=== PATIENT | female | born 1945 | race Caucasian/White ===

== ENCOUNTER 2018-02-01 08:26 | Inpatient (IN) | payer OTHER ==
[2018-01-05 13:17] VITALS: BMI 38.0
--- NOTE | 2018-01-05 14:08 | PAT Medication Instructions ---
Service Date Jan 05, 2018. Current Home Medication List Alendronate/Cholecalciferol (Fosamax+D 70MG/2800 Iu), 1 TABLET PO WK Alprazolam (Alprazolam), 1 TAB PO HS PRN for Insomnia B-Complex W/Biotin & Folic Aci (Super B-Complex), 1 CAP PO QAM Biotin (Biotin 5000), 1 CAP PO QPM Black Pepper-Turmeric (Turmeric Curcumin 3-500 mg), 1 CAP PO QAM Calcium Citrate-Vitamin D (Citracal + D3 Maximum), 1 TAB PO QAM Cholecalciferol (Vitamin D3), 1 TAB PO QPM Chromium Picolinate (Chromium Picolinate), 1 CAP PO NOON Cinnamon (Cinnamon Extract), 1,000 MG PO NOON Citalopram Hydrobromide (Citalopram Hydrobromide), 1 TAB PO QAM Coenzyme Q10 (Ubidecarenone) (Co Q10), 1 TAB PO HS Cyclosporine (Ophth) (Restasis), 1 DROP OPB BID Diclofenac (Voltaren), 50 MG PO HS Evening Arroyo Oil (Evening Arroyo Oil), 1 CAP PO QPM Famotidine (Pepcid), 40 MG PO HS Flaxseed (Linseed) (Flaxseed Oil), 1 CAP PO QPM Pohslk-Stmphwx-Clnljqjavct (Garlic & Parsley), 1 CAP PO NOON Lisinopril (Zestril), 10 MG PO QAM Lutein (Cvs Lutein), 1 CAP PO BID Lysine (l-Lysine), 1 TAB PO QPM Magnesium Hydroxide (Milk of Magnesia), 1 DOSE PO DAILY PRN for PRN Magnesium Oxide (Mag-Ox), 400 MG PO NOON Metoprolol Tartrate (Lopressor) (Lopressor), 25 MG PO BID Misc Natural Products (Cosamin Asu Advanced Life), 1 CAP PO QPM Multiple Vitamins W/ Minerals (Centrum Adults), 1 TAB PO QPM Psyllium Husk (Bulk) (Psyllium Husk), 1 DOSE PO QPM [Magnesium Lotion], 1 DOSE TOP BID [Progestrone Cream], 1 DOSE PV UD [Synodrin Gel], 1 DOSE TOP QPM Medication Instructions For Your Scheduled Surgery - Check with surgeon for instructions: Diclofenac (Voltaren), 50 MG PO HS - Hold the following medications 2 weeks prior to surgery: Misc Natural Products (Cosamin Asu Advanced Life), 1 CAP PO QPM Lutein (Cvs Lutein), 1 CAP PO BID Flaxseed (Linseed) (Flaxseed Oil), 1 CAP PO QPM Qgevpf-Yrsrowp-Dcmpuaytpzw (Garlic & Parsley), 1 CAP PO NOON Coenzyme Q10 (Ubidecarenone) (Co Q10), 1 TAB PO HS Biotin (Biotin 5000), 1 CAP PO QPM Black Pepper-Turmeric (Turmeric Curcumin 3-500 mg), 1 CAP PO QAM Evening Arroyo Oil (Evening Arroyo Oil), 1 CAP PO QPM Chromium Picolinate (Chromium Picolinate), 1 CAP PO NOON Cinnamon (Cinnamon Extract), 1,000 MG PO NOON - Hold the following medications 24 hours prior to surgery: [Synodrin Gel], 1 DOSE TOP QPM [Progestrone Cream], 1 DOSE PV UD - Hold the following medications the morning of surgery: Alendronate/Cholecalciferol (Fosamax+D 70MG/2800 Iu), 1 TABLET PO WK B-Complex W/Biotin & Folic Aci (Super B-Complex), 1 CAP PO QAM Calcium Citrate-Vitamin D (Citracal + D3 Maximum), 1 TAB PO QAM Lisinopril (Zestril), 10 MG PO QAM Magnesium Hydroxide (Milk of Magnesia), 1 DOSE PO DAILY PRN for PRN Magnesium Oxide (Mag-Ox), 400 MG PO NOON [Magnesium Lotion], 1 DOSE TOP BID - Take the following medications the morning of surgery with a sip of water: Metoprolol Tartrate (Lopressor) (Lopressor), 25 MG PO BID Cyclosporine (Ophth) (Restasis), 1 DROP OPB BID Citalopram Hydrobromide (Citalopram Hydrobromide), 1 TAB PO QAM Alprazolam (Alprazolam), 1 TAB PO PRN for Insomnia (if needed) - Take the following medications as scheduled the night before surgery: [Magnesium Lotion], 1 DOSE TOP BID Psyllium Husk (Bulk) (Psyllium Husk), 1 DOSE PO QPM Multiple Vitamins W/ Minerals (Centrum Adults), 1 TAB PO QPM Metoprolol Tartrate (Lopressor) (Lopressor), 25 MG PO BID Magnesium Hydroxide (Milk of Magnesia), 1 DOSE PO DAILY PRN for PRN (if needed) Lysine (l-Lysine), 1 TAB PO QPM Famotidine (Pepcid), 40 MG PO HS Cyclosporine (Ophth) (Restasis), 1 DROP OPB BID Cholecalciferol (Vitamin D3), 1 TAB PO QPM Alprazolam (Alprazolam), 1 TAB PO HS PRN for Insomnia (if needed) If you have any questions please call us at [phone] or [phone] or [phone]
--- NOTE | 2018-01-05 14:44 | DIAGNOSTIC IMAGING REPORT ---
CHEST 2 VIEWS ROUTINE CLINICAL HISTORY: Preoperative chest COMPARISON STUDY: No previous studies for comparison. FINDINGS: The cardiac and mediastinal contours are normal. There is no evidence of focal pulmonary consolidation. There is no evidence of failure. No pleural effusions are visualized.[ IMPRESSION: No active disease in the chest. Electronically signed by: Akil Cage M.D. 01/05/2018 2:43 PM Dictated Date/Time: 01/05/2018 2:42 PM
[2018-01-05 14:45] LABS: BASO % 0.7 %; BASO ABS # 0.04 K/uL (0-0.2); EOS % 2.4 %; EOS ABS # 0.13 K/uL (0-0.5); HEMATOCRIT 42.6 % (37-47); HEMOGLOBIN 14.7 g/dL (12.0-16.0); IG# 0.01 K/uL (0.00-0.02); LYMPH % 30.4 %; LYMPH ABS # 1.67 K/uL (1.2-3.4); MEAN CELL VOLUME 92.6 fL (80-100); MEAN CORPUSCULAR HGB CONC 34.5 g/dl (32-36); MEAN PLATELET VOLUME 11.8 fL (7.4-10.4); MONO % 6.7 %; MONO ABS # 0.37 K/uL (0.11-0.59); NEUT % 59.6 %; NEUT ABS # 3.27 K/uL (1.4-6.5); PLATELET COUNT 215 K/uL (130-400); RED CELL DISTRIBUTION WIDTH CV 13.5 % (11.5-14.5); RED CELL DISTRIBUTION WIDTH SD 45.6 fL (36.4-46.3); WHITE BLOOD COUNT 5.49 K/uL (4.8-10.8)
[2018-01-05 14:54] LABS: PTT PATIENT 26.5 SECONDS (21.0-31.0)
[2018-01-05 16:25] LABS: ALBUMIN 3.9 gm/dl (3.4-5.0); CALCIUM 9.1 mg/dl (8.5-10.1); CREATININE 0.72 mg/dl (0.60-1.20); POTASSIUM 3.6 mmol/L (3.5-5.1)
[2018-01-06 06:44] LABS: HEMOGLOBIN A1C 5.4 % (4.5-5.6)
--- NOTE | 2018-01-12 10:58 | HISTORY & PHYSICAL EXAMINATION ---
DATE OF ADMISSION: 02/01/2018 CHIEF COMPLAINT: Right knee pain. HISTORY OF PRESENT ILLNESS: Ms. Rodriguez is a 73-year-old female with a 3-4 year history of right knee pain. The patient rates her pain at 7/10. She has pain with her daily activities. She has limited standing and walking tolerance. Pain is worse with weightbearing. The patient has had Voltaren injections and bracing over the years without relief. She has failed conservative treatment and is scheduled for right knee replacement. PAST MEDICAL HISTORY: Hypertension, PVCs, heart murmur with a history of rheumatic fever and anxiety. She denies heart disease, diabetes or DVT. PAST SURGICAL HISTORY: Cholecystectomy and excision of subcutaneous cyst. SOCIAL HISTORY: The patient denies alcohol or tobacco use. She lives in a 2-story home. She is and works as a manufacturing quality engineer. FAMILY HISTORY: Positive for PE in her mother. MEDICATIONS: Citracal 1260 mg daily, Super B complex, vitamin C, Centrum Silver, L-lysine, cinnamon 1000 mg, flaxseed oil, Lutein, magnesium 400 mg, chromium 200 mcg, CoQ10 at 200 mg, biotin 5000 mcg, vitamin D3 at 2000 international units, milk of magnesia, progesterone cream, metoprolol 25 mg b.i.d., lisinopril 10 mg, famotidine 40 mg, Xanax 1 mg, Fosamax 70 mg, Restasis twice a day, citalopram 10 mg and diclofenac 50 mg. ALLERGIES: ADHESIVE, CAFFEINE AND ASPIRIN. REVIEW OF SYSTEMS: See HPI. Ten other systems reviewed, all negative. PHYSICAL EXAMINATION: VITAL SIGNS: Height 5 feet 8, weight 254 pounds. BMI is 38. GENERAL: Well-developed and well-nourished female who is alert and oriented x3. Mood and affect are appropriate. HEENT: Normocephalic and atraumatic. Mucous membranes are moist and intact. NECK: Supple without lymphadenopathy. HEART: Regular rate and rhythm without murmurs, rubs or gallops. LUNGS: Clear to auscultation without wheezes or rhonchi. ABDOMEN: Soft and nontender. Bowel sounds are equal and active. EXTREMITIES: No ecchymosis, redness or warmth. She has valgus deformity. Range of motion is from 5-95 degrees. She has +1 medial laxity. She is neurovascularly intact with +5/5 strength. She has mild effusion. X-RAY EXAMINATION: AP and lateral views show joint space narrowing and osteophyte formation. IMPRESSION: Degenerative joint disease, right knee. PLAN: The patient will be admitted for a right total knee arthroplasty. The patient has an ASPIRIN ALLERGY. She is requesting Eliquis for DVT prophylaxis as it is on her formulary.
[2018-02-01] VITALS (10 sets, daily range): BP systolic 105–165; BP diastolic 57–83; PULSE 61–82; TEMP 36.6; O2SAT 91–97; Ht 175.3 cm; Wt 115.5 kg
[~2018-02-01] VITALS: Ht 175.3 cm; Wt 115.5 kg
[2018-02-01] MEDS: TRANEXAMIC ACID INJ 1,000 MG x 2 Bags IV SCH ×4 (06:30→09:54)
[~2018-02-01 08:26] MED LIST: ACETAMINOPHEN 500 MG TAB PO SCH; ALPR-411 PO; ATROPINE SULFATE 0.1 MG/ML 5ML SYR IV PRN; B-CO1CAP5 PO; BIOTCAP2 PO; BLAC1CAP5 PO; BUPIVACAINE 0.25% 30 ML VIAL ONE; BUPIVACAINE 0.5 % 5 MG/1 ML PF 10ML VIAL ONE; CALC1TAB9 PO; CEFAZOLIN 2000MG IV PUSH 15 ML IV SCH; CHOL20007 PO; CHRO1CAP3 PO; CINN500C13 PO; CITA10TA4 PO; COEN90TA PO; CYCL0.052 OPB; CeleBREX 200 MG CAP PO SCH; DEXAMETHASONE 4 MG TAB PO SCH; DICL50TA3 PO; EVENCAP6 PO; EpHEDrine SULFATE INJ 50 MG/ML AMP IV PRN; FAMO40TA6 PO; FAMOTIDINE 20 MG TAB PO SCH; FLAX12003 PO; FSMD/70 PO; GABAPENTIN 300 MG CAP PO SCH; GARL1CAP3 PO; LACTATED RINGER'S 1000ML 1,000 ML IV SCH; LACTATED RINGER'S 1000ML 500 ML IV SCH; LACTATED RINGER'S 1000ML IV SCH; LISI-461 PO; LUTE6CAP9 PO; LYSI1TAB11 PO; MAGN400T6 PO; MAGNESIUM TOP; METO25TA56 PO; METOCLOPRAMIDE HCL 10 MG TAB PO SCH; MISC1CAP PO; MOMLX PO; MULT-610 PO; ONDANSETRON INJ 2 MG/ML 2 ML VIAL IV PRN; PROGESTRONE PV; PSYLPOW38 PO; ROPIVACAINE 5MG/ML 30 ML 150 MG, BUPIVACAINE 0.5% MPF INJ 30 ML, EpINEphrine HCL INJ 0.... INFIL SCH; [UNRECOGNIZED DRUG - OTHER] TOP
[2018-02-01] MEDS ORDERED: MIDAZOLAM HCL 1 MG/ML 2ML VIAL ONE ×5 (08:51→10:44)
--- NOTE | 2018-02-01 09:04 | History & Physical Bridge Note ---
H&P Re-Evaluation Bridge Note: I have examined the patient, reviewed the History & Physical and in the interval since the performance of the History & Physical I have noted the following changes of clinical significance: No changes noted
[2018-02-01] MEDS ORDERED: ORTHO JOINT ANESTHETIC ONE (09:30)
[2018-02-01] MEDS ORDERED: BACITRACIN 50000 UNIT VIAL ONE (09:31)
[2018-02-01] MEDS ORDERED: POVIDONE-IODINE OP SOLN 30 ML BTL ONE (09:31)
[2018-02-01] MEDS ORDERED: FENTANYL CITRATE INJ 50 MCG/1 ML 2 ML VIAL ONE (09:47)
[2018-02-01] MEDS ORDERED: PROPOFOL IV EMULSION 10 MG/ML 20 ML VIAL IV ONE (11:02)
[2018-02-01] MEDS ORDERED: EpHEDrine SULFATE 50MG/5ML SYR ONE (11:02)
[2018-02-01] MEDS ORDERED: LIDOCAINE HCL 2% 2 ML VIAL (20MG/ML) ONE (11:02)
--- NOTE | 2018-02-01 11:02 | [facility] Post Operative Brief Note ---
Immediate Operative Summary Operative Date Feb 01, 2018. Pre-Operative Diagnosis Right knee degenerative joint disease Post-Operative Diagnosis Right knee degenerative joint disease Procedure(s) Performed Right total knee arthroplasty, cemented Surgeon Dr. Hale Fabricator Artificial Breast Surgeon(s) Wily Garcia PA-C Estimated Blood Loss 10cc Findings Consistent with Post-Op Diagnosis Specimens A: Right knee bone and tissue Anesthesia Type MAC Spinal Regional Complication(s) none Disposition Accompanied Pt To Recover: no Disposition: Recovery Room / PACU
[2018-02-01] MEDS ORDERED: MAGNESIUM HYDROXIDE SUSP 30 ML UDC PO PRN (11:45)
[2018-02-01] MEDS ORDERED: MoRPHine SULFATE 2 MG/ML CARP IV PRN (11:45)
[2018-02-01] MEDS ORDERED: ONDANSETRON INJ 2 MG/ML 2 ML VIAL IV PRN (11:45)
[2018-02-01] MEDS ORDERED: ALPRAZOLAM 0.5 MG TAB PO PRN (11:45)
[2018-02-01] MEDS ORDERED: ZOLPIDEM TARTRATE 5 MG TAB PO PRN (11:45)
[2018-02-01] MEDS ORDERED: ALUMINUM/MAGNESIUM/SIMETH (MAALOX MAX) 30 ML UDC PO PRN (11:45)
[2018-02-01] MEDS ORDERED: METOCLOPRAMIDE HCL INJ 5 MG/ML 2 ML VIAL IV PRN (11:45)
[2018-02-01] MEDS: FERROUS GLUCONATE 324 MG TAB PO SCH ×2 (12:00→17:52)
--- NOTE | 2018-02-01 12:17 | DIAGNOSTIC IMAGING REPORT ---
RIGHT KNEE 2 VIEWS History: Right total knee arthroplasty. Degenerative arthritis. Postop. FINDINGS: The patient is status post a right total knee arthroplasty. The hardware is intact. No fracture or dislocation. Skin juan f and surgical drains are in place. IMPRESSION: Right total knee arthroplasty. No evidence for hardware complication. Electronically signed by: Miles Mike M.D. 02/01/2018 12:16 PM Dictated Date/Time: 02/01/2018 12:16 PM
--- NOTE | 2018-02-01 12:26 | OPERATIVE REPORT ---
DATE OF OPERATION: 02/01/2018 PREOPERATIVE DIAGNOSIS: Osteoarthritis, right knee. POSTOPERATIVE DIAGNOSIS: Osteoarthritis, right knee. PROCEDURE: Right total knee arthroplasty. SURGEON: Dr. Hale. DEICER INSPECTOR ELECTRIC: Wily Garcia PA-C ANESTHESIA: Spinal. COMPLICATIONS: None. OPERATION AND FINDINGS: Following induction of spinal anesthesia, the patient's right leg was prepped and draped in the usual sterile manner. Limb was exsanguinated with an Esmarch bandage and tourniquet was inflated to 350 mmHg. A longitudinal incision was made anteriorly. Subcutaneous tissue was sharply dissected. Electrocautery was used for hemostasis. Prepatellar bursa was incised and median parapatellar incision was performed. Patella was everted and the knee was flexed. Fat pad was removed to aid in visualization and the anterior and posterior cruciate ligaments were removed. The medial face of the tibia was cleared of soft tissue first with a Bovie and a Pa elevator. This tissue was retracted posteriorly using a blunt Hohmann. A Almendarez retractor was used to expose the synovium above on the anterior aspect of the femur and this was removed down to bone. The PSI guide was placed on the distal femur and two pins were placed anteriorly and kept in position and two additional pins were placed distally and removed. The distal femoral cutting block was placed in position and the distal femoral cut was used in the +0 setting. Next, the cutting block was removed and the femoral 4 block was placed in the distal end of the femur. Care was taken to ensure appropriate external rotation and feeler gauge was used to ensure no notching would occur. The femoral block was centered on the distal femur and in the medial and lateral direction and was fixed using two bone screws. The gold pins were then removed. The oscillating saw was used to create the bone cuts and the distal femoral cutting block was removed and the reciprocating saw was used to further trim the femoral cuts as well as a deep in the area for the trochlear groove. Next, posterior condyle remnants were removed. Following this, a meniscal clamp and knife were utilized to remove the anterior portion of both medial and lateral meniscus. The proximal tibia PSI guide was placed into position and the proximal tibial cutting guide was screwed into position. The extra medullary alignment guide was utilized to ensure appropriate alignment. The proximal tibia was cut and the proximal tibial cutting block was removed and this bone fragment was removed. The appropriate guide was used to perform the notch cut on the distal femur and a lamina land leasing examiner and a cochlear knife were utilized to finish both medial and lateral meniscectomies to remove any remnants of the posterior or anterior cruciate ligaments. Following this, the distal femoral component was impacted into position and blunt Carlos was used to sublux the tibia anteriorly. The proximal tibia was sized and a 3 tibial tray was chosen as the size to be used. This was put into position and appropriate external rotation and a double check with extramedullary alignment guide was performed. The canal for the tibial stem was prepared first with a 17 mm drill and then the punch and a mallet and the trial tibial poly was placed. An 11 was chosen the size to be used. It was brought to extension and the patella was prepared with the patellar reamer. A 33 component was chosen the size to be used. The trial component was placed and knee was taken through a full range of motion and there was found to be no lateral subluxation of the tibia. No lateral release was required. The trials were all removed. The final components were obtained and assembled. Cement was mixed. The knee was thoroughly irrigated and the ortho mix was injected about the knee joint. The final components were cemented into position. After thoroughly suctioning and drying the bone ends, all excess cement was removed. The knee was held in extension while the cement hardened. The wound was irrigated and closed over a Hemovac drain. #1 Vicryl was used to close the extensor mechanism. Subcutaneous tissues closed using 0 Dexon. Skin was closed with juan f. Sterile dressing of Adaptic, 4 x 4's, sterile Webril, and Ryan was applied. The patient tolerated the procedure well. Due to the complex nature of the procedure, the entire surgery was performed with the operational assistance of Wily Garcia PA-C. The boiler assistant operator, under direct supervision, was involved in the actual performance of all aspects of the surgical procedure including hemostasis, tissue retraction and incision, instrument management, patient positioning, and wound closure. DISPOSITION: Recovery room, stable. I attest to the content of the Intraoperative Record and any orders documented therein. Any exception s are noted below.
--- NOTE | 2018-02-01 12:54 | Anesthesiology Progress Note ---
Anesthesia Post Op Note Date & Time Feb 01, 2018 at 12:53 Vital Signs Pain Intensity: 0 Vital Signs Past 12 Hours Date Time Temp Pulse Resp B/P (MAP) Pulse Ox O2 Delivery O2 Flow Rate FiO2 02/01/18 12:42 62 12 02/01/18 12:42 62 12 97 02/01/18 12:41 127/60 02/01/18 12:37 77 19 97 02/01/18 12:37 79 19 02/01/18 12:36 129/59 02/01/18 12:35 36.3 69 16 127/60 94 Nasal Cannula 3 02/01/18 12:32 62 17 93 02/01/18 12:32 62 17 02/01/18 12:31 123/61 02/01/18 12:27 70 18 95 02/01/18 12:27 70 18 02/01/18 12:26 133/59 02/01/18 12:22 60 16 98 02/01/18 12:22 61 16 02/01/18 12:21 122/61 02/01/18 12:17 65 24 97 02/01/18 12:17 66 24 02/01/18 12:15 121/61 02/01/18 12:12 64 20 02/01/18 12:12 64 20 95 02/01/18 12:11 113/71 02/01/18 12:07 61 13 02/01/18 12:07 61 13 94 02/01/18 12:06 125/59 02/01/18 12:05 66 20 97 02/01/18 12:05 66 20 02/01/18 12:01 125/60 02/01/18 12:00 63 20 94 02/01/18 12:00 63 20 02/01/18 11:56 136/70 02/01/18 11:55 65 12 97 02/01/18 11:55 67 12 02/01/18 11:54 66 16 02/01/18 11:54 66 16 98 02/01/18 11:51 118/74 02/01/18 11:49 67 18 02/01/18 11:49 68 18 96 02/01/18 11:46 128/62 02/01/18 11:44 73 18 97 02/01/18 11:44 66 18 02/01/18 11:40 125/66 02/01/18 11:40 128/62 02/01/18 11:39 69 94 02/01/18 11:39 36.3 69 16 125/66 97 Nasal Cannula 3 02/01/18 11:39 69 02/01/18 09:10 36.6 61 20 165/79 96 Room Air Notes Mental Status: alert / awake / arousable, participated in evaluation Pt Amnestic to Procedure: Yes Nausea / Vomiting: adequately controlled Pain: adequately controlled Airway Patency, RR, SpO2: stable & adequate BP & HR: stable & adequate Hydration State: stable & adequate Neuraxial Anesthesia: was administered, sensory block is resolving Anesthetic Complications: no major complications apparent
[2018-02-01] MEDS ORDERED: MoRPHine SULFATE 4 MG/ML 1 ML CARP\\VIAL IV PRN (13:30)
[2018-02-01] MEDS: D5W AND 1/2NSS + 20MEQ KCL 1,000 ML IV SCH ×2 (13:35→22:13)
[2018-02-01] MEDS: KETOROLAC TROMETHAMINE 15 MG/ML VIAL IV. SCH ×2 (13:41→19:49)
[2018-02-01] MEDS: ACETAMINOPHEN 500 MG TAB PO SCH (17:52)
[2018-02-01] MEDS: CEFAZOLIN IV 2,000 MG in SYRINGE 0 ML IV SCH (17:52)
[2018-02-01] MEDS: OXYCODONE HCL IR 5 MG TAB (IMMEDIATE RELEASE) PO PRN ×2 (18:35→19:49)
[2018-02-01] MEDS: METOPROLOL TARTRATE 25 MG TAB PO SCH (20:47)
[2018-02-01] MEDS: CHOLECALCIFEROL 1000 INTER.UNIT TAB PO SCH (20:48)
[2018-02-01] MEDS: DOCUSATE SODIUM 100 MG CAP PO SCH (20:48)
[2018-02-02] VITALS (8 sets, daily range): BP systolic 112–150; BP diastolic 62–82; PULSE 63–70; TEMP 36.3–37; O2SAT 92–97
[2018-02-02] MEDS: CEFAZOLIN IV 2,000 MG in SYRINGE 0 ML IV SCH (02:25)
[2018-02-02] MEDS: ACETAMINOPHEN 500 MG TAB PO SCH ×3 (02:25→18:14)
[2018-02-02] MEDS: KETOROLAC TROMETHAMINE 15 MG/ML VIAL IV. SCH ×2 (02:25→09:07)
[2018-02-02 07:07] LABS: HEMATOCRIT 33.7 % (37-47); HEMOGLOBIN 11.4 g/dL (12.0-16.0); MEAN CELL VOLUME 92.3 fL (80-100); MEAN CORPUSCULAR HEMOGLOBIN 31.2 pg (25-34); MEAN CORPUSCULAR HGB CONC 33.8 g/dl (32-36); MEAN PLATELET VOLUME 10.7 fL (7.4-10.4); PLATELET COUNT 181 K/uL (130-400); RED CELL DISTRIBUTION WIDTH CV 13.3 % (11.5-14.5); WHITE BLOOD COUNT 12.65 K/uL (4.8-10.8)
[2018-02-02] MEDS ORDERED: DEXAMETHASONE INJ 10 MG in SYRINGE 0 ML IV ONE (07:30)
[2018-02-02 07:45] LABS: CALCIUM 8.3 mg/dl (8.5-10.1); CREATININE 0.69 mg/dl (0.60-1.20); POTASSIUM 3.9 mmol/L (3.5-5.1)
[2018-02-02] MEDS ORDERED: B COMPLEX PO SCH (09:00)
[2018-02-02] MEDS ORDERED: BIOTIN PO SCH (09:00)
[2018-02-02] MEDS ORDERED: CITALOPRAM 20 MG TAB PO SCH (09:00)
[2018-02-02] MEDS ORDERED: FOLIC ACI PO SCH (09:00)
[2018-02-02] MEDS: OXYCODONE HCL IR 5 MG TAB (IMMEDIATE RELEASE) PO PRN ×2 (09:07→20:25)
[2018-02-02] MEDS: METOPROLOL TARTRATE 25 MG TAB PO SCH ×2 (09:08→20:46)
[2018-02-02] MEDS: MAGNESIUM OXIDE 400 MG TAB PO SCH (09:09)
[2018-02-02] MEDS: CITALOPRAM 20 MG TAB PO SCH (09:09)
[2018-02-02] MEDS: FERROUS GLUCONATE 324 MG TAB PO SCH ×3 (09:10→18:14)
[2018-02-02] MEDS: MULTIVITAMIN TAB PO SCH (09:10)
[2018-02-02] MEDS: D5W AND 1/2NSS + 20MEQ KCL 1,000 ML IV SCH (09:11)
[2018-02-02] MEDS: LISINOPRIL 10 MG TAB PO SCH (09:11)
[2018-02-02] MEDS: DOCUSATE SODIUM 100 MG CAP PO SCH ×2 (09:11→20:46)
[2018-02-02] MEDS: PANTOprazole SOD 40 MG TAB PO SCH (09:11)
--- NOTE | 2018-02-02 09:12 | Orthopedic Progress Note ---
Orthopedic Progress Note Date of Service Feb 02, 2018. Subjective Post OP Day: 1 Reports: feeling well Objective N/V intact, dressing C/D/I (Hemovac d/c'd), toes mobile Date Time Temp Pulse Resp B/P (MAP) Pulse Ox O2 Delivery O2 Flow Rate FiO2 02/02/18 08:23 95 Room Air 02/02/18 08:05 36.7 68 15 130/75 (93) 95 Room Air 02/02/18 02:53 36.3 63 15 128/63 (84) 97 Room Air 02/02/18 00:35 Room Air 02/01/18 22:50 36.6 61 16 105/57 (73) 95 Room Air 02/01/18 20:44 71 129/66 (87) 02/01/18 18:32 36.6 69 16 142/78 (99) 91 Room Air 02/01/18 16:07 36.6 76 16 143/76 (98) 94 Room Air 02/01/18 16:00 94 Room Air 02/01/18 15:04 74 16 123/73 (90) 97 2.0 02/01/18 13:56 82 16 151/83 (105) 93 2.0 02/01/18 13:30 73 16 121/76 (91) 95 Nasal Cannula 2.0 02/01/18 13:00 36.6 69 20 123/65 (84) 96 Nasal Cannula 2.0 02/01/18 13:00 96 Nasal Cannula 2.0 02/01/18 13:00 96 Nasal Cannula 2.0 02/01/18 12:53 70 14 02/01/18 12:53 71 14 97 02/01/18 12:51 116/63 02/01/18 12:48 68 15 93 02/01/18 12:48 67 15 02/01/18 12:45 121/60 02/01/18 12:43 63 14 02/01/18 12:43 63 14 94 02/01/18 12:42 62 12 02/01/18 12:42 62 12 97 02/01/18 12:41 127/60 02/01/18 12:37 77 19 97 02/01/18 12:37 79 19 02/01/18 12:36 129/59 02/01/18 12:35 36.3 69 16 127/60 94 Nasal Cannula 3 02/01/18 12:32 62 17 93 02/01/18 12:32 62 17 02/01/18 12:31 123/61 02/01/18 12:27 70 18 95 02/01/18 12:27 70 18 02/01/18 12:26 133/59 02/01/18 12:22 60 16 98 02/01/18 12:22 61 16 02/01/18 12:21 122/61 02/01/18 12:17 65 24 97 02/01/18 12:17 66 24 02/01/18 12:15 121/61 02/01/18 12:12 64 20 02/01/18 12:12 64 20 95 02/01/18 12:11 113/71 02/01/18 12:07 61 13 02/01/18 12:07 61 13 94 02/01/18 12:06 125/59 02/01/18 12:05 66 20 97 02/01/18 12:05 66 20 02/01/18 12:01 125/60 02/01/18 12:00 63 20 94 02/01/18 12:00 63 20 02/01/18 11:56 136/70 02/01/18 11:55 65 12 97 02/01/18 11:55 67 12 02/01/18 11:54 66 16 02/01/18 11:54 66 16 98 02/01/18 11:51 118/74 02/01/18 11:49 67 18 02/01/18 11:49 68 18 96 02/01/18 11:46 128/62 02/01/18 11:44 73 18 97 02/01/18 11:44 66 18 02/01/18 11:40 125/66 02/01/18 11:40 128/62 02/01/18 11:39 69 94 02/01/18 11:39 36.3 69 16 125/66 97 Nasal Cannula 3 02/01/18 11:39 69 Laboratory Results 24 Hours: Test 02/02/18 06:40 Hematocrit 33.7 % Hemoglobin 11.4 g/dL Assessment & Plan Assessment: 73 yo female stable POD #1 s/p right TKA Plan: 1. Med management 2. DVT prophylaxis- Eliquis, SCDs 3. PT/OT 4. D/C planning- home w/ HH
--- NOTE | 2018-02-02 09:13 | Discharge Instructions ---
Discharge Instructions Date of Service Feb 02, 2018. Admission Reason for Admission: Right Knee Osteoarthritis Discharge Discharge Diagnosis / Problem: Right knee arthritis Discharge Goals Goal(s): Decrease discomfort, Improve function Activity Recommendations Activity Limitations: as noted below Weightbearing Status: Right weightbearing (as tolerated) . Instructions / Follow-Up Instructions / Follow-Up ACTIVITY RECOMMENDATIONS: SELF CARE INSTRUCTIONS AFTER TOTAL KNEE REPLACEMENT A. You may need to continue a physical therapy program after discharge from the hospital. There are several options available to you. Your doctor will assist you in selecting the best one for you. 1. An out-patient facility 2 to 3 times a week for therapy or home therapy. 2. Continue working on all exercises taught to you in the hospital. Your goals should be to increase bending of your knee to 90 degrees and beyond and to fully straighten your knee. B. You may progress at your own pace from walking with a walker or crutches to a cane; then to no assistive devices. C. Make walking a part of your daily routine. Be up as much as comfortable with rest periods throughout the day. Rest with leg elevation is very important. Use the ice wrap frequently for the first 3-4 weeks. D. There are no restrictions on activities. You may ride in a car, shop, participate in log rider and all social activities. E. Wear the long elastic stockings (EMBER hose) 20 hours a day for 2 weeks after surgery. They can be removed several times a day for laundering and for a bath. F. You may shower, no tub baths until cleared by your doctor. SPECIAL CARE INSTRUCTIONS: VERY IMPORTANT TO READ AND REVIEW A. There are a few signs you need to watch for after you are home. Call [facility] if you notice any of the followin. Increased severe knee pain. Some pain is expected especially when you exercise. 2. Increased swelling in your leg or knee; pain or swelling of the calf muscle in either lower leg. 3. Any fluid drainage from the incision. 4. Shortness of breath or chest pain. B. Please call [facility] at if you have any concerns or questions about your operation or recovery. The doctor or his nurse will return your call promptly. C. You must take antibiotics before dental work, bladder, bowel or other surgery. Your doctor will provide you with a permanent care to carry describing this precaution. IMPORTANT: * REMEMBER TO TAKE ASPIRIN, 81 MG, TWICE DAILY FOR 4 WEEKS UNLESS OTHERWISE DIRECTED. THIS IS YOUR BLOOD THINNER. * HIGH RISK PATIENTS MAY BE PRESCRIBED A STRONGER BLOOD THINNER. THIS WILL BE PROVIDED AT DISCHARGE. * CALL IF INCREASED PAIN, REDNESS, DRAINAGE OR FEVER GREATER THAT 101. * WEAR EMBER HOSE 20 HOURS PER DAY FOR 2 WEEKS. FOLLOW UP VISIT: If appointment is not already scheduled: Please call [facility] to make a follow-up appointment for 2 weeks after your surgery at . Current Hospital Diet Patient's current hospital diet: Regular Diet Discharge Diet Recommended Diet: Regular Diet Procedures Procedures Performed: Right total knee arthroplasty, cemented Pending Studies Studies pending at discharge: no Laboratory Results Hemoglobin A1c Test 01/05/18 13:55 Range/Units Estimated Average Glucose 108 mg/dl Hemoglobin A1c 5.4 4.5-5.6 % Medical Emergencies . Who to Call and When: Medical Emergencies: If at any time you feel your situation is an emergency, please call 911 immediately. . Non-Emergent Contact Non-Emergency issues call your: Surgeon Call Non-Emergent contact if: temperature is above 101.5, your pain is not controlled, wound has increased drainage, wound has increased redness . "Provider Documentation" section prepared by Wily Garcia PA-C. . [place] Drug Monitoring Program Search Results: patient reviewed within database, no issues identified
--- NOTE | 2018-02-02 10:08 | Anesthesiology Progress Note ---
Anesthesia Post Op Note Date & Time Feb 02, 2018 at 10:07 Vital Signs Pain Intensity: 3.5 Vital Signs Past 12 Hours Date Time Temp Pulse Resp B/P (MAP) Pulse Ox O2 Delivery O2 Flow Rate FiO2 02/02/18 09:00 36.7 70 14 130/67 (88) 97 Room Air 02/02/18 08:23 95 Room Air 02/02/18 08:05 36.7 68 15 130/75 (93) 95 Room Air 02/02/18 02:53 36.3 63 15 128/63 (84) 97 Room Air 02/02/18 00:35 Room Air 02/01/18 22:50 36.6 61 16 105/57 (73) 95 Room Air Notes Mental Status: alert / awake / arousable, participated in evaluation Pt Amnestic to Procedure: Yes Nausea / Vomiting: adequately controlled Pain: adequately controlled Airway Patency, RR, SpO2: stable & adequate BP & HR: stable & adequate Hydration State: stable & adequate Neuraxial Anesthesia: was administered, sensory block resolved Anesthetic Complications: no major complications apparent
[2018-02-02] MEDS: APIXABAN 2.5 MG TAB PO SCH ×2 (12:21→20:46)
[2018-02-02] MEDS: CHOLECALCIFEROL 1000 INTER.UNIT TAB PO SCH (20:47)
[2018-02-03] MEDS: OXYCODONE HCL IR 5 MG TAB (IMMEDIATE RELEASE) PO PRN ×3 (00:42→12:44)
[2018-02-03] MEDS: ACETAMINOPHEN 500 MG TAB PO SCH ×2 (02:22→10:00)
[2018-02-03 07:01] VITALS: BP 147/73; PULSE 64; TEMP 36.7; O2SAT 95
[2018-02-03] MEDS: FERROUS GLUCONATE 324 MG TAB PO SCH ×2 (08:30→12:30)
[2018-02-03] MEDS: MULTIVITAMIN TAB PO SCH (09:00)
[2018-02-03] MEDS: PANTOprazole SOD 40 MG TAB PO SCH (09:00)
[2018-02-03] MEDS: CITALOPRAM 20 MG TAB PO SCH (09:00)
[2018-02-03] MEDS: DOCUSATE SODIUM 100 MG CAP PO SCH (09:00)
[2018-02-03] MEDS: MAGNESIUM OXIDE 400 MG TAB PO SCH (09:00)
[2018-02-03] MEDS ORDERED: BISACODYL 10 MG SUPP ONE (09:29)
[2018-02-03] MEDS ORDERED: NURSING VERBAL MED ORDER ONE (09:30)
[2018-02-03] MEDS ORDERED: BISACODYL 10 MG SUPP PR ONE (09:45)
[2018-02-03] MEDS ORDERED: SOD PHOSPHATE/SOD BIPHOSPHATE ENEMA 132 ML BTL PR ONE (09:45)
[2018-02-03] MEDS: LISINOPRIL 10 MG TAB PO SCH (11:14)
[2018-02-03] MEDS: METOPROLOL TARTRATE 25 MG TAB PO SCH (11:14)
[2018-02-03] MEDS: APIXABAN 2.5 MG TAB PO SCH (11:15)
--- NOTE | 2018-02-03 12:31 | Orthopedic Progress Note ---
Orthopedic Progress Note Date of Service Feb 03, 2018. Subjective Post OP Day: 2 Reports: feeling well, nausea / vomiting (slight nausea, improving), calf pain, pain controlled w PO medications, Denies: chest pain, SOB, light headedness Objective calves soft nontender, N/V intact, capillary refill less than 2 sec., dressing C /D/I, A&O x3, toes mobile Date Time Temp Pulse Resp B/P (MAP) Pulse Ox O2 Delivery O2 Flow Rate FiO2 02/03/18 10:14 Room Air 02/03/18 07:01 36.7 64 20 147/73 (97) 95 Room Air 02/03/18 00:40 Room Air 02/02/18 22:52 37.0 67 16 150/82 (104) 95 Room Air 02/02/18 20:42 69 145/73 (97) 02/02/18 15:55 Room Air 02/02/18 15:01 36.6 67 16 134/63 (86) 96 Room Air Assessment & Plan Assessment: 73 yo female stable POD #2 s/p right TKA Plan: 1. Med management 2. DVT prophylaxis- Gold hCarles 3. PT/OT 4. D/C planning- home w/ HH Inhouse Planning Pain Management: PO Tylenol, Oxy IR DVT Prophylaxis: TEDs, SCDs, other Discharge Planning Discharge Planning: home with home health Pain Management: PO Tylenol, Oxy IR DVT Prophylaxis: TEDs Therapy: Physical Therapy
[2018-02-03] MEDS ORDERED: RXC5 PO (12:34)
[2018-02-03] MEDS ORDERED: ELQ25 PO (12:34)
[2018-02-03] MEDS ORDERED: ACET-24 PO (12:34)
[2018-02-03 13:10] VITALS: BP 149/79; PULSE 64
[2018-02-03 13:32] VITALS: BP 147/73; PULSE 64; TEMP 36.7; O2SAT 95
== END 2018-02-03 14:23 | disposition home health service (06) | DRG 470 ==
LOC: C.ACU 08:26 → C.3E 09:00 → ENRESERV 12:15
PROC: 0SRC0J9 Replacement of Right Knee Joint with Synthetic Substitute, Cemented, Open Approach (ICD-10-PCS; principal; 2018-02-01 10:45)
DX: M17.11 Unilateral primary osteoarthritis, right knee (principal); I10 Essential (primary) hypertension; Z79.899 Other long term (current) drug therapy; Z88.6 Allergy status to analgesic agent